=== PATIENT | female | born 1945 | race Caucasian/White ===

== ENCOUNTER → 2017-08-08 | Outpatient (CLI) | payer MEDICARE, MEDICAID ==
[~2017-08-08] MED LIST: ANUSOL-HC2.5% EX; CIPRO 500MG TA500 MG PO; DICLOFENAC SOD75 MG PO; FLOMAX 0.4MG C0.4 MG PO; HYDROCHLOROTHIA25 M1 PO; IBUPROFEN800 MG PO; KEFLEX 500MG.500 MG PO; LEVOTHYROXIN0.125 MG PO; POTASSIUM CHLO10 ME3 PO; PREDNISONE 20MG20 MG PO; PREDNISONE20 MG PO; TESSALON PERLE100 MG PO; TORADOL10 M2 PO; ZOFRAN ODT4 MG PO; ZYRTEC10 M3 PO
[2017-08-08 12:20] LABS: BUN 20 mg/dL (7-18)
[2017-08-08 12:26] LABS: GFR (ESTIMATED) 62 ML/MIN (59-)
== END ==
LOC: LAB 09:37
PROVIDERS: Internal Medicine Adolescent Medicine
DX: E78.5 Hyperlipidemia, unspecified (principal)

== ENCOUNTER → 2017-08-16 | Outpatient (CLI) | payer MEDICARE, MEDICAID ==
--- NOTE | 2017-08-17 16:17 | RADIOLOGY REPORT PS360 ---
DIG MAMM-SCREEN MICHELLE W/CAD CAD Screening ORDERING PHYSICIAN : Anna Alvarado APRN PATIENT AGE: 72 years GENDER: Female COMPARISON: Previous mammograms: July 2000 15 Mar 2014 INDICATION: Routine screening 72-year-old. No hormones no new complaints noncontributory family history TECHNIQUE: Standard CC and MLO images were obtained. R2 CAD reviewed. FINDINGS: Low-density breast bilaterally with no new areas concern. No dominant mass nor suspicious calcification breast. Vascular calcifications noted bilateral. RIGHT BREAST: No new areas of concern LEFT BREAST: No new areas concern IMPRESSION: ...... Stable mammogram with no new areas of concern BI-RADS CATEGORY: 1_Negative RECOMMENDED FOLLOWUP: 12M 12 MONTH FOLLOW-UP (A letter has been sent to the patient regarding results of the study.)
== END ==
LOC: RAD 08:24
DX: Z12.31 Encounter for screening mammogram for malignant neoplasm of breast (principal)
CPT/HCPCS: G0202